=== PATIENT | female | born 1975 | race Caucasian/White ===

== ENCOUNTER 2017-02-17 08:23 | Day surgery (SDC) | payer OTHER ==
[~2017-02-17] VITALS: Ht 165.1 cm; Wt 58.0 kg
[~2017-02-17 08:23] MED LIST: CABERGOLINE0.5 MG PO
[2017-02-17 08:45] VITALS: BP 118/79
[2017-02-17] MEDS ORDERED: ENDOCET 5-3251 EACH PO (11:19)
[2017-02-17] MEDS ORDERED: IBUPROFEN800 MG PO (11:19)
[2017-02-17 12:03] VITALS: BP 115/55
[2017-02-17 13:08] VITALS: BP 132/63
== END 2017-02-17 13:35 | disposition home or self-care (01) ==
LOC: SDC 08:23
PROC: 0UT74ZZ Resection of Bilateral Fallopian Tubes, Percutaneous Endoscopic Approach (ICD-10-PCS; principal; 2017-02-17)
DX: Z30.2 Encounter for sterilization (principal); K66.0 Peritoneal adhesions (postprocedural) (postinfection)
CPT/HCPCS: 88302; J0330; J1100; J1170; J1885; J2405; J2710; J3010